=== PATIENT | female | born 1960 | race African-American/Black ===

== ENCOUNTER 2018-01-05 14:58 | Inpatient (IN) | payer MEDICAID ==
[~2018-01-05] VITALS: Ht 167.6 cm; Wt 68.0 kg
--- NOTE | 2018-01-05 14:58 | NUR ---
BBRA FROM A CLINIC FOR SOB BEFORE GETTING AN EPIDURAL. NAD NOTED. PT AAO X4, RR EVEN AND UNLABORED AT THIS TIME. VSS. PENDING MD RAMIREZ.
[2018-01-05] MEDS ORDERED: FUROSEMIDE 20 MG/2 ML VIAL ONE ×2 (15:27→15:28)
[2018-01-05] MEDS ORDERED: FUROSEMIDE 40 MG/4 ML VIAL IV ONE (15:30)
[2018-01-05 15:56] LABS: BASOPHILS % (AUTO) 0.7 % (0.0-2.0); EOSINOPHILS % (AUTO) 1.7 % (0.0-6.0); HEMATOCRIT 31 % (33-45); HEMOGLOBIN 10.4 g/dL (11.5-14.8); LYMPHOCYTES # (AUTO) 1.2 /CMM (0.8-4.8); LYMPHOCYTES % (AUTO) 35.3 % (20.0-44.0); MEAN CORPUSCULAR HGB CONC 33 g/dl (31.0-36.0); MEAN CORPUSCULAR VOLUME 82 fL (82-100); MONOCYTES # (AUTO) 0.3 /CMM (0.1-1.30); MONOCYTES % (AUTO) 7.6 % (2.0-12.0); NEUTROPHILS # (AUTO) 1.8 /CMM (1.8-8.9); NEUTROPHILS % (AUTO) 54.7 % (43.0-81.0); PLATELET COUNT (AUTO) 195 /CMM (150-450); RDW COEFFICIENT OF VARIATION 16.2 (11.5-15.0); RED BLOOD CELL COUNT(AUTO) 3.82 MIL/uL (4.0-5.2); WHITE BLOOD COUNT (AUTO) 3.4 K/uL (4.3-11.0)
[2018-01-05 15:58] LABS: CALCIUM, SERUM 8.4 mg/dL (8.5-10.1); CREATININE 1.5 mg/dL (0.6-1.3); POTASSIUM 3.5 mmol/L (3.5-5.1)
[2018-01-05 16:00] LABS: INR 1.07 (0.85-1.15)
[2018-01-05 16:05] LABS: TROPONIN I 0.036 ng/mL (0.00-0.056)
[2018-01-05] MEDS ORDERED: CARV6.25 PO (17:11)
[2018-01-05] MEDS ORDERED: LOSA50TA21 PO (17:11)
[2018-01-05] MEDS ORDERED: POTA20TA83 PO (17:11)
[2018-01-05] MEDS ORDERED: LISI-603 PO (17:11)
[2018-01-05] MEDS ORDERED: FURO40TA5 PO (17:11)
--- NOTE | 2018-01-05 19:20 | NUR ---
ASSISTANT MERCHANDISER OPENING NOTE RECEIVED REPORT FROM AM NURSE REGARDING THE PATIENT WHO IS NEWLY ADMITTED TO THE UNIT. PATIENT WAS BROUGHT TO THE UNIT ON A GURNEY. WITH 2L OXYGEN VIA NASAL CANNULA. PATIENT REPORTS HAVING SOB. CHEST EXPANSION EVEN, RESPIRATIONS FAST AND SHALLOW. VITAL SIGNS BP: 163/119, HR: 94, RR: 22, O2 SAT: 99%. PATIENT WITH DIAGNOSIS OF CHF AND HX OF HTN, COPD, SMOKING. PATIENT IS ALERT ORIENTED X4. DENIES PAIN. ABLE TO VERBALIZE NEEDS. ABLE TO AMBULATE INDEPENDENTLY. PATIENT WAS PLACED ON TELE MONITORING WITH READING SINUS RHYTHM. PATIENT WAS CHANGED AND WAS MADE COMFORTABLE IN BED, HOB ELEVATED TO HEP WITH BREATHING. ALL BELONGINGS ARE CHECKED AND ACCOUNTED FOR. SAFETY MEASURES IN PLACE, BED IN LOW LOCKED POSITION, SIDE RAILS UP X2, CALL LIGHT WITHIN EASY REACH. WILL REVIEW AND CARRY OUT ALL THE ORDERS. WILL CONTINUE TO MONITOR.
[2018-01-05 20:00] VITALS: BP 163/119
[2018-01-05] MEDS ORDERED: POTASSIUM CHLORIDE 20 MEQ TAB.PRT.SR PO ONE (21:30)
[2018-01-05] MEDS ORDERED: CARVEDILOL 6.25 MG TABLET PO ONE (21:30)
[2018-01-05] MEDS: FUROSEMIDE 40 MG/4 ML VIAL IV SCH (21:41)
[2018-01-05 22:00] VITALS: BP 162/119
[2018-01-05] MEDS: IPRATROPIUM NEB FS 0.5 MG/2.5 ML AMPUL.NEB NEB SCH (22:14)
[2018-01-05] MEDS: ALBUTEROL FS 2.5 MG/3 ML VIAL.NEB NEB SCH (22:14)
[2018-01-05] MEDS: LISINOPRIL (20MG) 20 MG TABLET PO SCH (22:43)
--- NOTE | 2018-01-05 23:30 | NUR ---
2D ECHO WAS DONE, EF 20%. DR. GLASS WAS NOTIFIED OF THE RESULTS. ORDERED TO NOTIFY DR. TUTTLE IN THE MORNING.
[2018-01-06] VITALS: BP 155/105
[2018-01-06 04:00] VITALS: BP 160/105
--- NOTE | 2018-01-06 04:30 | NUR ---
PATIENT'S BLOOD PRESSURE 160/105, HEART RATE 98. NOTIFIED DR. GLASS. PRESCRIBED NORVASC 10 MG DAILY START NOW. MEDICATION ADMINISTERED WILL CONTINUE TO MONITOR.
[2018-01-06] MEDS: AMLODIPINE BESYLATE 10 MG TABLET PO SCH ×2 (04:46→09:11)
[2018-01-06 07:25] LABS: BASOPHILS % (AUTO) 0.3 % (0.0-2.0); EOSINOPHILS % (AUTO) 0.8 % (0.0-6.0); HEMATOCRIT 34 % (33-45); HEMOGLOBIN 11.1 g/dL (11.5-14.8); LYMPHOCYTES # (AUTO) 0.9 /CMM (0.8-4.8); LYMPHOCYTES % (AUTO) 17.8 % (20.0-44.0); MEAN CORPUSCULAR HGB CONC 33 g/dl (31.0-36.0); MEAN CORPUSCULAR VOLUME 82 fL (82-100); MONOCYTES # (AUTO) 0.2 /CMM (0.1-1.30); MONOCYTES % (AUTO) 4.5 % (2.0-12.0); NEUTROPHILS # (AUTO) 4.2 /CMM (1.8-8.9); NEUTROPHILS % (AUTO) 76.6 % (43.0-81.0); PLATELET COUNT (AUTO) 223 /CMM (150-450); RDW COEFFICIENT OF VARIATION 16.1 (11.5-15.0); WHITE BLOOD COUNT (AUTO) 5.3 K/uL (4.3-11.0)
--- NOTE | 2018-01-06 07:30 | NUR ---
BINDERY LIBRARY TECHNICAL ASSISTANT CLOSING NOTE PATIENT IN BED, RESTING COMFORTABLY, ALERT ORIENTED X4. ON 4 L OF OXYGEN VIA NC. GETS SOB EASILY WITH EXERTION AND ANXIETY. IN NO APPARENT DISTRESS AT THIS MOMENT. PATIENT IS TO BE EVALUATED BY DR. TUTTLE. CHEST EXPANSION EVEN, RESPIRATIONS SLIGHTLY LABORED. ABLE TO VERBALIZE NEEDS AND CONCERNS. DENIES PAIN OR SEVERE DISCOMFORT AT THIS TIME. LEFT HAND 20G SL. PATENT AND INTACT. BEDSIDE COMMODE FOR ELIMINATION. PATIENT KEPT CLEAN AND COMFORTABLE, ALL NEEDS ATTENDED. SAFETY MEASURES IN PLACE, BED IN LOW LOCKED POSITION, SIDE RAILS UP X2, CALL LIGHT WITHIN EASY REACH. WILL ENDORSE TO AM NURSE FOR ALBERTO.
--- NOTE | 2018-01-06 07:30 | NUR ---
DOCK SUPERVISOR NOTES PATIENT RECEIVED RESTING INSIDE ROOM. SLEEPING, EASILY AROUSABLE THROUGH VERBAL AND TACTILE STIMULI. BREATHING EVEN AND UNLABORED. NO SOB OR ACUTE DISTRESS NOTED. PATIENT ON O2 AT 4L/MIN VIA NC. NO NASAL IRRITATION OR BLEEDING NOTED AT THIS TIME. PATIENT DENIES ANY PAIN OR DISCOMFORT. PATIENT ALERT AND ORIENTED, ABLE TO MAKE NEEDS KNOWN AND FOLLOW SIMPLE INSTRUCTIONS. WILL CONTINUE TO MONITOR. BED LOCKED AND IN LOW POSITION. BILATERAL UPPER SIDE RAILS UP AND LOCKED. CALL LIGHT WITHIN EASY REACH
[2018-01-06 07:38] LABS: CALCIUM, SERUM 8.3 mg/dL (8.5-10.1); CREATININE 1.5 mg/dL (0.6-1.3); POTASSIUM 4.1 mmol/L (3.5-5.1)
[2018-01-06 07:44] LABS: THYROID STIMULATING HORMONE 0.483 uIU/mL (0.358-3.74)
[2018-01-06 08:00] VITALS: BP 161/106
[2018-01-06] MEDS: IPRATROPIUM NEB FS 0.5 MG/2.5 ML AMPUL.NEB NEB SCH ×3 (08:53→20:31)
[2018-01-06] MEDS: ALBUTEROL FS 2.5 MG/3 ML VIAL.NEB NEB SCH ×3 (08:54→20:31)
[2018-01-06] MEDS: CARVEDILOL 12.5 MG TABLET PO SCH ×2 (09:11→21:13)
[2018-01-06] MEDS: LISINOPRIL (20MG) 20 MG TABLET PO SCH (09:11)
[2018-01-06] MEDS: FUROSEMIDE 40 MG/4 ML VIAL IV SCH ×2 (09:11→21:11)
--- NOTE | 2018-01-06 11:30 | NUR ---
MS RN NOTES RECEIVED CALL FROM [facility], SPOKE WITH AYAZ. PER AYAZ, PATIENT MAY BE TRANSFERRED TO [facility] IF PATIENT AGREES. PER AYAZ, SHE HAS DISCUSSED IT WITH DR. GLASS AND DR. GLASS GAVE OK. CALL TRANSFERRED TO PATIENT AND PATIENT DECLINED TRANSFER, VERBALIZED SHE IS NOT GOING ANYWHERE ELSE BUT HOME WHEN SHE LEAVES. MADE AWARE
[2018-01-06 16:00] VITALS: BP 128/63
--- NOTE | 2018-01-06 18:59 | NUR ---
MS RN NOTES PATIENT RESTING INSIDE ROOM. AWAKE, ALERT AND ORIENTED. ABLE TO MAKE NEEDS KNOWN AND FOLLOW SIMPLE INSTRUCTIONS. BREATHING EVEN AND UNLABORED. NO SOB OR ACUTE DISTRESS NOTED AT THIS TIME. PATIENT DENIES ANY PAIN OR DISCOMFORT. REMAINS AFEBRILE, SKIN DRY AND WARM TO TOUCH. NO CHANGES IN LOC NOTED. WILL ENDORSE TO INCOMING SHIFT FOR ALBERTO. BED LOCKED AND IN LOW POSITION. BILATERAL UPPER SIDE RAILS UP AND LOCKED. CALL LIGHT WITHIN EASY REACH
--- NOTE | 2018-01-06 19:35 | NUR ---
RN NOTES RECEIVED PT AWAKE, APPEARS COMFORTABLE IN BED, ON 2LPM O2 VIA NC AND TOLERATED WELL. PT DENIES SOB AND PAIN AT THIS TIME. IV ACCESS ON LEFT HAND PATENT AND INTACT. KEPT BED IN LOWEST POSITION, LOCKED, SIDE RAILS UP X2, WITH CALL LIGHT WITHIN REACH. PLAN OF CARE DISCUSSED WITH THE PT AND VERBALIZED UNDERSTANDING. WILL CONTINUE TO MONITOR PT.
[2018-01-06 20:00] VITALS: BP 144/80
[2018-01-06 22:00] VITALS: BP 141/80
--- NOTE | 2018-01-07 07:11 | NUR ---
RN NOTES PT SLEPT WELL OVERNIGHT, APPEARS COMFORTABLE IN BED. NO SIGNS OF DISTRESS AND DISCOMFORT NOTED. PT REFUSED FOR BREATHING TREATMENT LAST NIGHT PER PT SHE DOESN'T NEED IT SHE'S FINE. COMPLAIN OF PAIN AND SOB. VITAL SIGNS STABLE, AFEBRILE. ALL NEEDS ATTENDED. SAFETY MEASURES AND FALL PRECAUTION OBSERVED. WILL ENDORSE TO MORNING RN FOR CONTINUITY OF CARE.
[2018-01-07] MEDS: ALBUTEROL FS 2.5 MG/3 ML VIAL.NEB NEB SCH (07:35)
[2018-01-07] MEDS: IPRATROPIUM NEB FS 0.5 MG/2.5 ML AMPUL.NEB NEB SCH (07:35)
--- NOTE | 2018-01-07 07:35 | NUR ---
RN MS NOTES PT IN BED, AWAKE, ALERT AND ORIENTED, DENIES PAIN, NOT IN DISTRESS, BREATHING PATTERN NORMAL, CALL LIGHT WITHIN REACH, NEEDS ATTENDED.
[2018-01-07 08:00] VITALS: BP 150/103
--- NOTE | 2018-01-07 08:20 | NUR ---
PT REFUSED HHN TX AT THIS TIME. NO SOB/RESP DISTRESS NOTED. RN NOTIFIED.
[2018-01-07 08:29] LABS: CALCIUM, SERUM 8.6 mg/dL (8.5-10.1); CREATININE 1.4 mg/dL (0.6-1.3); POTASSIUM 3.8 mmol/L (3.5-5.1)
[2018-01-07] MEDS: FUROSEMIDE 40 MG/4 ML VIAL IV SCH (08:33)
[2018-01-07] MEDS: CARVEDILOL 12.5 MG TABLET PO SCH (08:34)
[2018-01-07] MEDS: AMLODIPINE BESYLATE 10 MG TABLET PO SCH (08:34)
[2018-01-07] MEDS: LISINOPRIL (20MG) 20 MG TABLET PO SCH (08:34)
[2018-01-07] MEDS ORDERED: CARV12.52 PO (09:00)
[2018-01-07] MEDS ORDERED: CARVEDILOL 12.5 MG TABLET PO SCH (09:00)
[2018-01-07] MEDS ORDERED: AMLO10TA6 PO (09:00)
[2018-01-07] MEDS ORDERED: LISI20TA61 PO (09:00)
--- NOTE | 2018-01-07 09:00 | NUR ---
RN MS NOTES COREG 25MG NOT GIVEN, PT RECEIVED DOSE EARLIER, CURRENT BP 122/83 HR 65.
[2018-01-07 11:20] VITALS: BP 122/83
--- NOTE | 2018-01-07 13:00 | NUR ---
RN MS NOTES PT IN BED, AWAKE, ALERT AND ORIENTED, NO COMPLAINT OF PAIN OR ANY DISCOMFORT, BREATHING PATTERN NORMAL AND NOT LABORED, PT AMBULATES WITH STEADY GAIT IN HER ROOM, INDEPENDENT WITH ADL'S, PT SEEN BY DR. GLASS, DISCHARGE ORDER GIVEN, DISCHARGE AND MEDICATION INSTRUCTIONS PROVIDED TO PT, PT INSTRUCTED TO SEE HER PRIMARY CARE PHYSICIAN AND SALES SERVICE TECHNICIAN, VERBALIZED UNDERSTANDING, BELONGINGS ACCOUNTED FOR, PRESCRIPTION GIVEN TO PT, OWN MEDS RETURNED TO PT, PER PT SHE IS GOING TO TAKE THE BUS HOME, ASSISTED WITH NEEDS, LEFT IN STABLE CONDITION.
== END 2018-01-07 13:00 | disposition home or self-care (01) | DRG 194 ==
LOC: ER 15:02 → TELE 19:22 → EDBD 19:22 → TELE 19:29 → MED 01-06 08:51
PROVIDERS: ADMIT Internal Medicine; ATTEND Internal Medicine
DX: I11.0 Hypertensive heart disease with heart failure (principal); I42.0 Dilated cardiomyopathy; N18.3 Chronic kidney disease, stage 3 (moderate); I13.0 Hypertensive heart and chronic kidney disease with heart failure and stage 1 through stage 4 chronic kidney disease, or unspecified chronic kidney disease; I50.23 Acute on chronic systolic (congestive) heart failure; J44.9 Chronic obstructive pulmonary disease, unspecified; Z82.49 Family history of ischemic heart disease and other diseases of the circulatory system
CPT/HCPCS: 36415; 71045-TC; 80048-TC; 80061-TC; 83880; 84443-TC; 84484-TC; 85025-TC; 85730-TC; 87081-TC; 93307-TC; 94799-TC; A4606; J1940; Z7610